=== PATIENT | male | born 1960 | race Caucasian/White ===

== ENCOUNTER 2022-01-18 13:16 | Emergency (ER) | payer MEDICARE, SELFPAY ==
[2022-01-18 13:34] VITALS: BP 133/69; PULSE 64; RESP 16; TEMP 36.4; O2SAT 99
[2022-01-18 13:51] VITALS: BP 133/69; PULSE 64; RESP 16; TEMP 36.4; O2SAT 99
--- NOTE | 2022-01-18 13:52 | ED.DENTAL ---
HPI - Dental/Oral General Chief complaint: Dental/Oral Stated complaint: left side jaw swelling Time Seen by Provider: 01/18/22 13:52 Source: patient Mode of arrival: ambulatory History of Present Illness HPI Narrative: 61 y/o male presented for c/o left lower gum pain and white color after food got under the dentures 3 days ago. Since then the pain has worsened. He has been rinsing with warm salt water. Denies n/v/f/c. Taking Tylenol for pain and swished with whiskey prior to arrival. MD Complaint: tooth pain Related Data Home Medications Medication Instructions Recorded Confirmed emtricitabine 200 mg-rilpivirine tablet PO 01/18/22 25 mg-tenofovir alafenam 25 mg tablet (Jonysey) fluticasone propionate 50 intranasal 01/18/22 mcg/actuation nasal spray,suspension rosuvastatin 10 mg tablet mg 01/18/22 warfarin 5 mg tablet mg 01/18/22 zolpidem 10 mg tablet mg 01/18/22 Allergies Allergy/AdvReac Type Severity Reaction Status Date / Time No Known Allergies Allergy Verified 01/18/22 13:19 Review of Systems Review of Systems: CONSTITUTIONAL: Denies body aches, fever, chills ENT: Denies rhinorrhea, congestion, sore throat, or otalgia. Reports dental/gum pain CARDIOVASCULAR: Denies chest pain, palpitations RESPIRATORY: Denies cough or dyspnea. SKIN: Denies rash, itching, or wounds. MUSCULOSKELETAL: Denies myalgia. NEUROLOGIC: Denies headache, numbness, tingling, or weakness. PMFSH Comments At time of signature, I have reviewed and agree with nursing past medical, surgical, social and family history unless otherwise noted. Please see nursing chart for further information. There is no relevant family history pertinent to the presenting complaint Exam Narrative: GENERAL: Appears in pain, no distress HEAD: Normocephalic, atraumatic. EYES: EOMI. No redness or drainage. Conjunctivae normal. ENT: Lower gum pain to site of #21, edentulous, mild swelling and tenderness to site; abrasion and abscess noted; no active drainage; Mucous membranes pink and moist. TMs normal bilaterally. Throat normal. Uvula midline. NECK: Normal AROM. No lymphadenopathy. CHEST: Clear to auscultation. HEART: Regular rate and rhythm. SKIN: Warm, dry, no rash. Normal skin turgor. . Course Course Emergency Course: Patient is aware of diagnosis, understands and agrees to treatment plan. Anticipatory guidance given. Patient agrees to follow-up as directed and is aware of reasons to seek care at the emergency department. Portions of this record may have been created with voice recognition software Level of Care: Express Care Visit Vital Signs Vital signs: Vital Signs Temperature 97.6 F 01/18/22 13:34 Pulse Rate 64 01/18/22 13:34 Respiratory Rate 16 01/18/22 13:34 Blood Pressure 133/69 01/18/22 13:34 Pulse Oximetry 99 01/18/22 13:34 Oxygen Delivery Room Air 01/18/22 13:34 Temperature 97.6 F 01/18/22 13:51 Pulse Rate 64 01/18/22 13:51 Respiratory Rate 16 01/18/22 13:51 Blood Pressure 133/69 01/18/22 13:51 Pulse Oximetry 99 01/18/22 13:51 Oxygen Delivery Room Air 01/18/22 13:51 MDM - Dental/Oral MDM Narrative Medical decision making narrative: There are no focal signs of space occupying lesions that are compromising to the airway; Patient is non-toxic appearing. The floor of the mouth is soft with no signs of Juan's Angina; no induration below mandible, no neck pain. Advised supportive measures and s/s to go to the ER. Patient is felt appropriate for discharge home with PCP follow up. Differential Diagnosis Differential diagnosis: Likely gingival abscess, dental abscess and aphthous ulcer Discharge Plan Discharge Clinical Impression: Gingival abscess Patient Disposition: Home, Self-Care Condition: Stable Additional Instructions: Take antibiotic as directed May apply heat or ice to the face Rinse mouth with warm salt water at least 2 times a day.
== END 2022-01-18 14:08 | disposition home or self-care (01) ==
PROVIDERS: Emergency Provider Nurse Practitioner Family
DX: K05.20 Aggressive periodontitis, unspecified (principal); E78.00 Pure hypercholesterolemia, unspecified; Z86.711 Personal history of pulmonary embolism; Z79.01 Long term (current) use of anticoagulants; Z21 Asymptomatic human immunodeficiency virus [HIV] infection status
CPT/HCPCS: 99213; G0463